=== PATIENT | female | born 1975 | race Caucasian/White ===

== ENCOUNTER → 2023-11-04 | Day surgery (SDC) | payer MEDICAID ==
[~2023-11-04] MED LIST: Ketamine 500 mg/10 ML MDV IV ONE; Lidocaine 2% 100 MG/5 ML Syringe IVPUSH ONE; Midazolam 1 MG/ML 2 ML SDV IV ONE; Phenylephrine 0.5% Nasal Spray 15 ML Bot NAS ONE; Propofol 200 MG/20 ML SDV IV ONE; Sodium Chloride 0.9% 10 ML Syringe FLUSH PRN
[2023-11-04 07:26] VITALS: BP 123/75; PULSE 102
[2023-11-04] MEDS: Lactated Ringers 1,000 ML IV SCH (08:04)
[2023-11-04] MEDS: Simethicone Drops 40 MG/0.6 ML 30 ML Bottle PO ONE (08:31)
== END | disposition home or self-care (01) ==
LOC: FB.SDS 06:55
PROVIDERS: ATTEND Surgery
DX: K62.5 Hemorrhage of anus and rectum (principal); D50.9 Iron deficiency anemia, unspecified; I10 Essential (primary) hypertension; F32.A Depression, unspecified; E66.9 Obesity, unspecified; Z68.42 Body mass index [BMI] 45.0-49.9, adult; Z79.899 Other long term (current) drug therapy
CPT/HCPCS: 45378; A9270; J2250; J2704; J3490; J7120